=== PATIENT | male | born 1965 | race Caucasian/White ===

== ENCOUNTER 2017-03-14 14:36 | Inpatient (IN) | payer MEDICAID ==
--- NOTE | 2017-03-14 15:09 | ED Physician Chart ---
ED Chief Complaint/HPI - Patient Information Date Seen:: 03/14/17 Time Seen:: 15:04 Chief Complaint:: SOB and cough for 2 days History of Present Illness:: 51 yo male had runny nose and nasal congestion for 5 days before he developed SOB and cough productive of purulent sputum for 2 days. His SOB was worsened by exertion. He denied fever or chills. The patient had smoked cigarettes for 30 years, one pack daily. Allergies:: Allergies Allergy/AdvReac Type Severity Reaction Status Date / Time No Known Allergies Allergy Verified 03/14/17 15:01 Vitals:: Vital Signs - 8 hr 03/14/17 15:01 Temp 97.0 F HR 64 RR 22 BP 143/74 O2 Sat % 96 ED Review of Systems - Review of Systems General/Constitutional: No fever, No chills Skin: No bruising Head: No headache Eyes: No pain ENT: No earache Neck: No neck pain Cardio Vascular: No chest pain Pulmonary: SOB GI: No nausea, No vomiting Musculoskeletal: No bone or joint pain Psychiatric: No prior psych history Neurological: No focal symptoms ED Past Medical History - Past Medical History Past Medical History: HTN Social History: Smoker, No Alcohol, No Drug Use Surgical History: other (lumar surgery) Family Medical History - Family Member Mother History Unknown: Yes ED Physical Exam - Physical Examination General/Constitutional: Awake Head: Atraumatic Eyes: PERRL Skin: No ecchymosis ENMT: Nasal exam nl Neck: No nuchal rigidity Other Respiratory comments:: Diffuse wheezing bilateral lungs Cardio Vascular: RRR, No murmur, gallop, rubs, NL S1 S2 GI: No tenderness/rebounding/guarding Extremities: normal strength in all extremities Neuro/Psych: No focal deficits ED Labs/Radiology/EKG Results - Radiology Results Results: CXR: no consolidation ED Assessment - Assessment General Assessment: Bronchitis Hypoxemia Assessment/Comments:: CBC, CMP, ABG CXR DuoNeb Solu-medrol Azithromycin ED Septic Shock - . Is Septic Shock (SBP<90, OR Lactate>4 mmol\L) present?: No - <6hrs of presentation: Vital Signs: Vital Signs - 8 hr 03/14/17 15:01 Temp 97.0 F HR 64 RR 22 BP 143/74 O2 Sat % 96 ED Reassessment (Disposition) - Reassessment Reassessment Condition:: Improved - Patient Disposition Discharge/Transfer:: Acute Care w/in this hosp Admitting Medical Physician:: Reji Padgett ED Discharge Plan - Patient Disposition Admit/Discharge/Transfer: Acute Care w/in this hosp Condition at Disposition: Stable
[2017-03-14] MEDS ORDERED: Albuterol/Ipratropium Neb 3 ML AERS HHN ONE ×3 (15:17→15:43)
[2017-03-14 15:54] LABS: ALLEN TEST PASS; pH 7.41 (7.35-7.45)
[2017-03-14 16:15] LABS: ALB/GLOB RATIO 1.5 (1.0-1.8); ALBUMIN 3.9 gm/dL (4.2-5.5); ALKALINE PHOSPHATASE 83 U/L (34-104); ANION GAP 9.6 (7.0-16.0); BILIRUBIN,TOTAL 0.3 mg/dL (0.3-1.0); BUN - UREA NITROGEN 13 mg/dL (7-25); CALCIUM SERUM 8.9 mg/dL (8.6-10.3); CARBON DIOXIDE 27.4 mEq/L (21.0-31.0); CHLORIDE 106 mEq/L (98-107); CREATININE - SERUM 0.7 mg/dL (0.7-1.3); GFR AFRICAN-AMERICAN > 60.0 ml/min (>90); GFR NON AFRICAN-AMERICAN > 60.0 ml/min; GLUCOSE 175 mg/dL (70-105); SGOT 48 U/L (13-39); SGPT/ALT 100 U/L (7-52); SODIUM SERUM 139 mEq/L (136-145); TOTAL PROTEIN,SERUM 6.5 gm/dL (6.0-8.3)
[2017-03-14 17:45] LABS: HEMOGLOBIN 16.3 gm/dL (12-16); RED BLOOD COUNT 5.82 Mil/cmm (4.30-5.70); WHITE BLOOD COUNT 10.5 Th/cmm (4.8-10.8)
[2017-03-14 17:46] LABS: % BASOPHILS 0.6 % (0.0-2.0); % EOSINOPHILS 0.3 % (0.0-5.0); % LYMPHOCYTES 13.6 % (20.0-50.0); % NEUTROPHILS 78.5 % (40.0-80.0); HEMATOCRIT 49.3 % (41.0-60); MEAN CELL VOLUME 84.6 fl (80-99); MEAN CORPUSCULAR HEMOGLOBIN 27.9 pg (26.0-30.0); PLATELET COUNT 319 Th/cmm (150-400)
[2017-03-14 17:47] LABS: BASOPHILE ABSOLUTE 0.1 Th/cumm (0-0.2); LYMPHOCYTE ABSOLUTE 1.4 Th/cmm (1.5-3.0); MONOCYTE ABSOLUTE 0.7 Th/cmm (0.3-1.0); NEUTROPHILE ABSOLUTE 8.3 Th/cmm (1.8-8.0)
[2017-03-14] MEDS ORDERED: Azithromycin 500 MG in Sodium Chloride 0.9% 250 ML IV ONE (17:51)
[2017-03-14 18:15] LABS: ALLEN TEST YES; pH 7.44 (7.35-7.45)
[2017-03-14] MEDS: Azithromycin 500 MG in Sodium Chloride 0.9% 250 ML IV SCH (21:45)
[2017-03-14] MEDS: Albuterol/Ipratropium Neb 3 ML AERS HHN SCH (22:38)
[2017-03-14 22:45] VITALS: BP 158/54
[2017-03-14] MEDS ORDERED: Influenza Vaccine 0.5 mL Syr IM ONE (23:10)
[2017-03-15] MEDS: Albuterol/Ipratropium Neb 3 ML AERS HHN SCH ×5 (02:43→19:25)
[2017-03-15 06:28] LABS: ALB/GLOB RATIO 1.4 (1.0-1.8); ALBUMIN 3.9 gm/dL (4.2-5.5); ALKALINE PHOSPHATASE 84 U/L (34-104); ANION GAP 11.2 (7.0-16.0); BILIRUBIN,TOTAL 0.3 mg/dL (0.3-1.0); BUN - UREA NITROGEN 14 mg/dL (7-25); CALCIUM SERUM 9.4 mg/dL (8.6-10.3); CARBON DIOXIDE 28.9 mEq/L (21.0-31.0); CHLORIDE 103 mEq/L (98-107); CREATININE - SERUM 0.7 mg/dL (0.7-1.3); GFR AFRICAN-AMERICAN > 60.0 ml/min (>90); GFR NON AFRICAN-AMERICAN > 60.0 ml/min; GLUCOSE 222 mg/dL (70-105); POTASSIUM SERUM 4.1 mEq/L (3.5-5.1); SGOT 36 U/L (13-39); SGPT/ALT 97 U/L (7-52); SODIUM SERUM 139 mEq/L (136-145); TOTAL PROTEIN,SERUM 6.6 gm/dL (6.0-8.3)
[2017-03-15 06:38] LABS: HEMOGLOBIN 16.5 gm/dL (12-16); LYMPHOCYTE ABSOLUTE 0.5 Th/cmm (1.5-3.0); MEAN CELL VOLUME 84.9 fl (80-99); MEAN CORPUSCULAR HEMOGLOBIN 28.1 pg (26.0-30.0); MEAN CORPUSCULAR HGB CONC 33.1 pg (28.0-36.0); MEAN PLATELET VOLUME 8.7 fl; MONOCYTE ABSOLUTE 4.5 Th/cmm (0.3-1.0); NEUTROPHILE ABSOLUTE 7.7 Th/cmm (1.8-8.0); PLATELET COUNT 343 Th/cmm (150-400); RED BLOOD COUNT 5.89 Mil/cmm (4.30-5.70); RED CELL DISTRIBUTION WIDTH 12.8 % (11.5-20.0)
[2017-03-15 07:31] LABS: WHITE BLOOD COUNT 13.7 Th/cmm (4.8-10.8)
--- NOTE | 2017-03-15 07:44 | Diagnostic Imaging Report ---
CHEST X-RAY: AP view INDICATION: Wheezing COMPARISON: None FINDINGS: Chronic interstitial lung changes are seen with left basal density. Cardiomegaly is noted with tortuous aorta. Degenerative changes of spine are noted. IMPRESSION: Left basal density. A small left effusion with atelectasis versus infiltrate of the left base cannot be excluded. Recommend dedicated follow-up PA and lateral chest x-rays Cardiomegaly and tortuous aorta.
--- NOTE | 2017-03-15 07:52 | Diagnostic Imaging Report ---
CHEST X-RAY: AP view INDICATION: Congestion COMPARISON: Chest x-ray 03/14/2017 at 17:58 FINDINGS: A small left effusion is noted. Atelectasis versus Infiltrate of the left lung base cannot be excluded. Mild cardiomegaly is noted. There may be a mild degree of congestion. IMPRESSION: Probable mild degree of pulmonary vascular congestion. A small left effusion is also noted. Atelectasis versus faint infiltrate of the left base cannot be excluded. Mild cardiomegaly.
--- NOTE | 2017-03-15 07:53 | Diagnostic Imaging Report ---
CHEST X-RAY: Single lateral view INDICATION: Effusion Comparison: Chest x-ray earlier the same day at 1728 FINDINGS: Single lateral view demonstrates no gross effusion. No focal consolidation identified. Heart size normal. IMPRESSION: No obvious effusion identified.
[2017-03-15 08:09] LABS: BAND NEUTROPHILE 4 % (0-10); LYMPHOCYTE 10 % (20-50); MONOCYTE 1 % (2-10); NEUTROPHILS 85 % (40-80); TOTAL CELLS COUNTED 100
--- NOTE | 2017-03-15 08:29 | History and Physical ---
History of Present Illness - HPI Chief Complaint: SOB and cough for 2 days HPI: 51 y/o male who presents to [facility] ER for 2 day history of SOB and cough for the past 2-3 days, along with nasal congestion and coughing up purulent sputum. Patient has a previous history of smoking 30 years x 1 pack/ day. While in the ER patient underwent initial labwork which revealed. WBC10.5 H/H 16.3/49.3 plat 319 Na 139 K 4.0 Bun/Cr 13/0.7 glu 175 AST 48 ALT 100 CXR - Patient subsequently admitted for further evaluation and treatment. Vital Signs: Last Vital Signs Temp 98.7 F 03/15/17 04:00 Pulse 78 03/15/17 06:54 Resp 14 03/15/17 06:54 BP 156/78 03/15/17 04:00 Pulse Ox 95 03/15/17 06:54 Past Medical History Cardiovascular: Report: HTN Pulmonary: Report: No Pertinent Hx CLIENT SERVICE MANAGER: Report: No Pertinent Hx GI: Report: No Pertinent Hx Psych: Report: No Pertinent Hx Musculoskeletal: Report: No Pertinent Hx Rheumatologic: Report: No pertinent Hx Infectious Disease: Report: No Pertinent Hx Renal/: Report: No Pertinent Hx Endocrine: Report: No Pertinent Hx Dermatology: Report: No Pertinent Hx - Past Surgical History Past Surgical History: No pertinent Hx Family Medical History - Family Member Mother History Unknown: Yes Social History Smoke: 1 pack per day (x 30 years) Alcohol: None Drugs: None Lives: With Family - Medications Home Medications: Home Medication Medication Instructions Recorded Type Atenolol 50 mg PO DAILY 03/14/17 History - Allergies Allergies/Adverse Reactions: Allergies Allergy/AdvReac Type Severity Reaction Status Date / Time No Known Allergies Allergy Verified 03/14/17 15:01 Review of Systems - Review of Systems Constitutional: Report: Weakness Eyes: Report: No Significant ENT: Report: No Significant Respiratory: Report: Cough, Sputum Cardiovascular: Report: No Significant Gastrointestinal: Report: No Significant Genitourinary: Report: No Significant Musculoskeletal: Report: No Significant Skin: Report: No Significant Neurological: Report: No Significant Physical Exam - Physical Exam HEENT: Report: Ears Nose Throat within normal limits, Pharnyx within normal limits Neck: Report: Within normal limits. Denies: Thyromegaly Cardiovascular Systems: Report: +s1/s2 noted, Regular, Rate and Rhythm Respiratory: Report: Wheezing Abdomen: Report: Non-tender to palpation, Guarding Back: Report: Inspection of back is within normal limits. Neuro/Psych: Report: Mood affect is within normal limits, A+Ox3, CN II-XII intact - Lab Results All Lab Results last 24 hours: Laboratory Results - last 24 hr 03/15/17 03/15/17 05:53 05:53 WBC 13.7 H D RBC 5.89 H Hgb 16.5 Hct 50.0 MCV 84.9 MCH 28.1 MCHC Differential 33.1 RDW 12.8 Plt Count 343 MPV 8.7 Band Neutrophils % 4 Neutrophils (Manual) 85 H Lymphocytes 10 L Monocytes 1 L Sodium 139 Potassium 4.1 Chloride 103 Carbon Dioxide 28.9 Anion Gap 11.2 BUN 14 Creatinine 0.7 Est GFR ( Amer) > 60.0 Est GFR (Non-Af Amer) > 60.0 BUN/Creatinine Ratio 20.0 Glucose 222 H Calcium 9.4 Total Bilirubin 0.3 AST 36 ALT 97 H Alkaline Phosphatase 84 Total Protein 6.6 Albumin 3.9 L Globulin 2.7 Albumin/Globulin Ratio 1.4 - Assessment Assessment: Current Active Problems Problem Status Onset DYSPNEA WITH COUGH/CONGESTION Acute SOB Acute Bronchitis Smoker HTN Mild cardiomegaly elevated BS - Plan Plan: Pulmonary consults -Dr.D Boucher CBC,CMP,BNP,Lipid profile, TSH,A1c accucheck Ac HS low dose sliding scale repeat chest xray solumedrol IV antibiotics Alb HHN
[2017-03-15] MEDS ORDERED: Pneumococcal Vaccine 0.5 mL Vial IM ONE (09:00)
[2017-03-15] MEDS: methylPREDNISolone SS 40 mg Vial IVP SCH ×2 (10:33→23:10)
[2017-03-15] MEDS: INSULIN ASPART SLIDING SCALE 100 UNITS/ML UNIT SUBQ SCH ×3 (12:33→23:00)
[2017-03-15] MEDS ORDERED: Probiotic Screen MC PRN (16:21)
[2017-03-15 20:53] LABS: A1C % 7.3 % (4.0-6.0)
[2017-03-15] MEDS: Azithromycin 500 MG in Sodium Chloride 0.9% 250 ML IV SCH (23:09)
--- NOTE | 2017-03-16 01:42 | Progress Notes ---
DATE: 03/15/2017 REASON FOR CONSULTATION: Shortness of breath. CONSULT NOTE: This is a 51-year-old gentleman who has been working locally, but lives in [facility], presented with increase of nasal congestion, coughing, sputum with questionable chills. Subsequently, the patient did not feel good. He decided to come check in a local Emergency Room where he came in here. SYMPTOMS: The patient has some slight sputum, some wheezing. No chest pain, no swelling of the legs. No PND, no orthopnea. Denies of any other medical issue of recent past, was told that he has sleep apnea syndrome. He did not get a chance to get it done and also has a history of hypertension for which he takes atenolol. PAST MEDICAL HISTORY: Morbid obesity, suspect obstructive sleep apnea syndrome, possibly metabolic disorder. Smoking history more than [id number] smoker. ALLERGIES: None that he can tell me. SOCIAL HISTORY: Currently works locally in a construction area. ALLERGIC HISTORY: Nil. FAMILY HISTORY: Noncontributory. PHYSICAL EXAMINATION: GENERAL: This is a heavy set, middle-aged looking gentleman; awake, alert, and oriented, not in acute distress. VITAL SIGNS: The patient's temperature is 98.3, blood pressure 150/90, respirations 18, and temperature is 98.2 on no oxygen. HEENT: Examination of the head is essentially unremarkable. Pupils appear to be equal and reacting to light. Conjunctivae show slightly pallor. Oral cavity shows small oropharyngeal opening. NECK: No nodes in the neck could be palpated. CHEST: Shows diminished air entry with occasional rhonchi. HEART: Regular. ABDOMEN: Protuberant, soft, and nontender. EXTREMITIES: No peripheral edema. LABORATORY DATA: The patient's initial white count is 10,000. Repeat on this morning is 13,000, hemoglobin is 16.5, lymphocyte predominant on lower side. The patient's ABG, pO2 this morning on room air is 52 with pCO2 of 45 and electrolytes are okay with sugar of 222, and albumin is 3.9. DIAGNOSTIC DATA: Chest x-ray shows hyperinflated lung, poor quality. ASSESSMENT: 1. The patient has acute asthmatic bronchitis. 2. Chronic obstructive pulmonary disease, probably causative factor is viral. 3. Suspect obstructive sleep apnea syndrome. 4. Morbid obesity with hypertension, diabetes mellitus, obesity, and obesity hypoventilation syndrome. PLANS AND SUGGESTIONS: We will continue current antibiotic inhalation treatment. We will add steroid to breathing treatment and watch the hemoglobin A1c and repeat blood gasses, chest x-ray and also checked out for influenza A and B antigen and see how it is and go from there. If he remains stable, he can be discharged to be followed up as an outpatient and go from there. JOB# [id number]
--- NOTE | 2017-03-16 03:33 | Consultation ---
DATE OF CONSULTATION: 03/15/[address] Reji Padgett. HISTORY AND PHYSICAL: This is a 51-year-old obese male patient, who is a nonsmoker, has been complaining of shortness of breath, cough with expectoration of green sputum, low-grade fever and the patient is admitted. No history of PND or orthopnea. PAST MEDICAL HISTORY: COPD, nicotine dependence, hypertension, and obesity. FAMILY HISTORY: Unremarkable. SOCIAL HISTORY: The patient smokes a pack a day. No history of alcohol abuse. ALLERGIES: None. PHYSICAL EXAMINATION: VITAL SIGNS: Blood pressure 150/80, pulse 70, respirations 20. HEAD: Normocephalic. No lumps or bumps. EYES: Pupils are equal, reactive to light. Fundi show AV nicking, sclerae white, conjunctivae pink. NECK: Carotid 2+. Normal upstroke. JVD flat. Thyroid not palpable. Lymph nodes not palpable. CHEST: Shows increased AP diameter. No kyphosis, scoliosis. LUNGS: Bilateral wheezing, rhonchi, prolonged expiration. HEART: PMI fifth intercostal space with lateral to midclavicular line. S1, S2. No S3, S4. Soft systolic murmur. ABDOMEN: Soft. Liver and spleen not palpable. No organomegaly. Bowel sounds active. NEUROLOGIC: Unremarkable. EXTREMITIES: Peripheral pulses 2+. No pedal edema. CLINICAL IMPRESSION: Acute exacerbation of chronic obstructive pulmonary disease, asthmatic bronchitis, obesity, hypertension and nicotine dependence, and diabetes mellitus type 2. PLAN: The patient to continue present care, monitor the patient, and get echocardiogram for left ventricular function. JOB# [id number]
[2017-03-16 05:35] LABS: EOSINOPHILE ABSOLUTE 0.8 Th/cmm (0.1-0.4); HEMATOCRIT 51.9 % (41.0-60); HEMOGLOBIN 16.9 gm/dL (12-16); LYMPHOCYTE ABSOLUTE 0.8 Th/cmm (1.5-3.0); MEAN CELL VOLUME 85.1 fl (80-99); MEAN CORPUSCULAR HEMOGLOBIN 27.7 pg (26.0-30.0); MEAN CORPUSCULAR HGB CONC 32.5 pg (28.0-36.0); MEAN PLATELET VOLUME 8.4 fl; MONOCYTE ABSOLUTE 4.9 Th/cmm (0.3-1.0); PLATELET COUNT 360 Th/cmm (150-400)
[2017-03-16 06:01] LABS: WHITE BLOOD COUNT 17.5 Th/cmm (4.8-10.8)
[2017-03-16 06:04] LABS: ALB/GLOB RATIO 1.4 (1.0-1.8); ALBUMIN 3.9 gm/dL (4.2-5.5); ALKALINE PHOSPHATASE 80 U/L (34-104); ANION GAP 9.6 (7.0-16.0); BILIRUBIN,TOTAL 0.3 mg/dL (0.3-1.0); BUN - UREA NITROGEN 16 mg/dL (7-25); CALCIUM SERUM 9.3 mg/dL (8.6-10.3); CARBON DIOXIDE 29.8 mEq/L (21.0-31.0); CHLORIDE 103 mEq/L (98-107); CREATININE - SERUM 0.6 mg/dL (0.7-1.3); GFR AFRICAN-AMERICAN > 60.0 ml/min (>90); GFR NON AFRICAN-AMERICAN > 60.0 ml/min; GLUCOSE 189 mg/dL (70-105); MAGNESIUM 2.1 mg/dL (1.9-2.7); POTASSIUM SERUM 4.4 mEq/L (3.5-5.1); SGOT 31 U/L (13-39); SGPT/ALT 108 U/L (7-52); SODIUM SERUM 138 mEq/L (136-145); TOTAL PROTEIN,SERUM 6.7 gm/dL (6.0-8.3)
[2017-03-16 06:26] LABS: NEUTROPHILS 83 % (40-80); TOTAL CELLS COUNTED 100
[2017-03-16 06:27] LABS: BAND NEUTROPHILE 2 % (0-10); LYMPHOCYTE 11 % (20-50); MONOCYTE 4 % (2-10)
[2017-03-16] MEDS: INSULIN ASPART SLIDING SCALE 100 UNITS/ML UNIT SUBQ SCH ×4 (07:00→22:40)
--- NOTE | 2017-03-16 08:26 | General Progress Note ---
Subjective - Review of Systems Service Date: 03/16/17 Subjective: Awake,Alert,afebrile. BP elevated this AM. Glucose slightly elevated WBC's elevated. Objective - Results Result Diagrams: 03/16/17 05:20 03/16/17 05:20 Recent Labs: Laboratory Last Values WBC 17.5 Th/cmm (4.8-10.8) H D 03/16/17 05:20 RBC 6.10 Mil/cmm (4.30-5.70) H 03/16/17 05:20 Hgb 16.9 gm/dL (12-16) 03/16/17 05:20 Hct 51.9 % (41.0-60) 03/16/17 05:20 MCV 85.1 fl (80-99) 03/16/17 05:20 MCH 27.7 pg (26.0-30.0) 03/16/17 05:20 MCHC Differential 32.5 pg (28.0-36.0) 03/16/17 05:20 RDW 13.0 % (11.5-20.0) 03/16/17 05:20 Plt Count 360 Th/cmm (150-400) 03/16/17 05:20 MPV 8.4 fl 03/16/17 05:20 Neutrophils % 78.5 % (40.0-80.0) 03/14/17 15:30 Band Neutrophils % 2 % (0-10) 03/16/17 05:20 Lymphocytes % 13.6 % (20.0-50.0) L 03/14/17 15:30 Monocytes % 7.0 % (2.0-10.0) 03/14/17 15:30 Eosinophils % 0.3 % (0.0-5.0) 03/14/17 15:30 Basophils % 0.6 % (0.0-2.0) 03/14/17 15:30 Neutrophils (Manual) 83 % (40-80) H 03/16/17 05:20 Lymphocytes 11 % (20-50) L 03/16/17 05:20 Monocytes 4 % (2-10) 03/16/17 05:20 D-Dimer < 100 ng/mL (100-400) L 03/14/17 15:30 Specimen Source Arterial 03/14/17 17:47 Sample Site Right Radial 03/14/17 17:47 pH 7.44 (7.35-7.45) 03/14/17 17:47 pCO2 45.0 mmHg (35.0-45.0) 03/14/17 17:47 pO2 52.0 mmHg (80.0-100.0) L 03/14/17 17:47 HCO3 29.1 mEq/L (20.0-26.0) H 03/14/17 17:47 Base Excess 5.6 mEq/L (-3.0-3.0) H 03/14/17 17:47 O2 Saturation 88.0 % (92.0-100.0) L 03/14/17 17:47 Jon Test YES 03/14/17 17:47 Vent Rate NA 03/14/17 17:47 Inspired O2 21 03/14/17 17:47 Tidal Volume NA 03/14/17 17:47 PEEP NA 03/14/17 17:47 Pressure (ins/psv/peep) NA 03/14/17 17:47 Critical Value SH 03/14/17 17:47 Sodium 138 mEq/L (136-145) 03/16/17 05:20 Potassium 4.4 mEq/L (3.5-5.1) 03/16/17 05:20 Chloride 103 mEq/L (98-107) 03/16/17 05:20 Carbon Dioxide 29.8 mEq/L (21.0-31.0) 03/16/17 05:20 Anion Gap 9.6 (7.0-16.0) 03/16/17 05:20 BUN 16 mg/dL (7-25) 03/16/17 05:20 Creatinine 0.6 mg/dL (0.7-1.3) L 03/16/17 05:20 Est GFR ( Amer) > 60.0 ml/min (>90) 03/16/17 05:20 Est GFR (Non-Af Amer) > 60.0 ml/min 03/16/17 05:20 BUN/Creatinine Ratio 26.7 03/16/17 05:20 Glucose 189 mg/dL (70-105) H 03/16/17 05:20 POC Glucose 156 MG/DL (70 - 105) H 03/16/17 06:39 Hemoglobin A1c % 7.3 % (4.0-6.0) H 03/14/17 15:30 Calcium 9.3 mg/dL (8.6-10.3) 03/16/17 05:20 Magnesium 2.1 mg/dL (1.9-2.7) 03/16/17 05:20 Total Bilirubin 0.3 mg/dL (0.3-1.0) 03/16/17 05:20 AST 31 U/L (13-39) 03/16/17 05:20 ALT 108 U/L (7-52) H 03/16/17 05:20 Alkaline Phosphatase 80 U/L (34-104) 03/16/17 05:20 Troponin I 0.01 ng/mL (0.01-0.05) 03/14/17 15:30 B-Natriuretic Peptide 72.2 pg/mL (5.0-100.0) 03/15/17 08:01 Total Protein 6.7 gm/dL (6.0-8.3) 03/16/17 05:20 Albumin 3.9 gm/dL (4.2-5.5) L 03/16/17 05:20 Globulin 2.8 gm/dL 03/16/17 05:20 Albumin/Globulin Ratio 1.4 (1.0-1.8) 03/16/17 05:20 TSH 0.96 uIU/ml (0.34-5.60) 03/16/17 05:20 - Physical Exam Vitals and I&O: Vital Signs Temp 98.2 F 03/16/17 00:00 Pulse 58 03/16/17 00:00 Resp 19 03/16/17 00:00 BP 171/88 03/16/17 00:00 Pulse Ox 97 03/16/17 00:00 Intake & Output 03/15/17 03/16/17 03/16/17 18:59 06:59 18:59 Weight (lbs) 137.438 kg Other: # Voids 5 # Bowel Movements 0 Active Medications: Current Medications Albuterol/Ipratropium (Duoneb Neb) 3 ml HHN [id number] [place] Stop: 05/15/17 06:59 Atenolol (Tenormin) 50 mg PO DAILY [place] Stop: 05/14/17 08:59 Last Admin: 03/15/17 10:34 Dose: 50 mg Budesonide (Pulmicort) 0.5 mg HHN BIDRT [facility] Stop: 05/15/17 06:59 Azithromycin 500 mg/ Sodium (Chloride) 250 mls @ 250 mls/hr IV Q24HR [facility] Stop: 05/13/17 21:14 Last Admin: 03/15/17 23:09 Dose: 250 mls/hr Ceftriaxone Sodium 1 gm/ (Dextrose) 50 mls @ 100 mls/hr IV Q24H [facility] Stop: 05/13/17 21:14 Last Admin: 03/15/17 23:10 Dose: 100 mls/hr Insulin Aspart (Novolog Insulin Sliding Scale) 0 units SUBQ ACHS [place] PRN Reason: Protocol Stop: 05/14/17 11:29 Last Admin: 03/15/17 23:00 Dose: Not Given Methylprednisolone Sodium Succinate (Solu-Medrol) 40 mg IVP Q12HR [facility] Stop: 05/15/17 08:59 Miscellaneous (Probiotic Screen) 1 ea [facility] PRN PRN PRN Reason: PROTOCOL Stop: 05/14/17 16:20 General: Alert, Oriented x3 HEENT: Atraumatic Neck: Supple Cardiovascular: Regular rate, Normal S1, Normal S2 Lungs: Other (decreased breath sounds) Abdomen: Bowel sounds, Soft Extremities: no Clubbing, no Cyanosis, no Edema Neurological: Normal gait, Normal speech Assessment/Plan - Problem List Patient Problems: All Active Problems DYSPNEA WITH COUGH/CONGESTION (Acute) - Assessment Assessment: Current Active Problems Problem Status Onset DYSPNEA WITH COUGH/CONGESTION Acute SOB Acute Bronchitis .. continue IV solumedrol and IV antibiotic therapy. Will check Chest xray tomorrow AM Smoker HTN elevated ... will add Clonidine 0.1mg q8 PRN SBP above 150 Mild cardiomegaly ... cardiology consult. elevated BS ... will start Metformin 500mg once daily. accuchecks, low dose sliding scale. decrease solumedrol 40mg IV q12 leukocytosis ... will repeat CBC tomorrow AM - Plan Plan: Pulmonary consults -Dr.D Boucher CBC,CMP,BNP,Lipid profile, TSH,A1c accucheck Ac HS low dose sliding scale repeat chest xray solumedrol IV antibiotics Alb HHN
[2017-03-16 10:05] LABS: ALLEN TEST POSITIVE; pH 7.43 (7.35-7.45)
[2017-03-16] MEDS: methylPREDNISolone SS 40 mg Vial IVP SCH ×2 (10:19→22:40)
[2017-03-16] MEDS: Albuterol/Ipratropium Neb 3 ML AERS HHN SCH ×4 (10:39→18:54)
[2017-03-16] MEDS: Budesonide 0.5 Mg/2 mL Ud HHN SCH ×2 (10:39→19:07)
--- NOTE | 2017-03-16 11:21 | Diagnostic Imaging Report ---
Chest x-ray (2 views) HISTORY: Shortness of breath Compared with a prior exam of March 15, 2017, the heart is enlarged. No focal pulmonary processes. No hilar or mediastinal abnormalities. IMPRESSION: 1. No acute focal pulmonary processes 2. Cardiomegaly
[2017-03-16 14:17] LABS: HEP A AB IGM Negative (Negative); HEP B CORE IGM Negative (Negative); HEP B SURFACE AG QL Negative (Negative); HEP C ANTIBODY 0.1 s/co ratio (0.0-0.9)
--- NOTE | 2017-03-16 14:23 | Cardiology ---
03/15/[address] Reji Padgett. M-MODE ECHOCARDIOGRAM: Mitral valve, anterior leaflet of mitral valve shows normal excursion, EF velocity. Posterior leaflet of the mitral valve shows normal excursion. Left ventricular posterior wall shows increased thickness, normal excursion. Interventricular septum shows increased thickness, normal excursion, hypertrophy of the left ventricle, ejection fraction 55%. Left atrium normal. Aortic root shows normal dimension, normal excursion of aortic leaflets. CONCLUSION: Hypertrophy of the left ventricle, ejection fraction 55%. 2D ECHO: Long axis view showed normal-sized left ventricle with hypertrophy of the left ventricle. Left atrium normal. Aortic root shows normal dimension, normal excursion of aortic leaflets. Short axis view of mitral valve normal. Short axis view of aortic valve normal. Apical four-chamber view showed normal-sized left ventricle with hypertrophy of the left ventricle. Left atrium normal, right ventricular cavity and right atrium normal. No pericardial effusion. CONCLUSION: Hypertrophy of the left ventricle, ejection fraction 55%. Doppler study shows mild aortic regurgitation and mild tricuspid regurgitation. JOB# [id number]
[2017-03-16] MEDS: Azithromycin 500 MG in Sodium Chloride 0.9% 250 ML IV SCH (22:40)
--- NOTE | 2017-03-17 03:28 | Progress Notes ---
DATE: 03/16/2017 PROBLEM LIST: 1. Acute respiratory failure, improving. 2. Chronic obstructive pulmonary disease. 3. Severe obstructive sleep apnea syndrome. 4. Possibly diabetes mellitus. CONSULT NOTE: This patient is feeling okay. He wants to go home. No coughing, no wheezing, no much shortness of breath. PHYSICAL EXAMINATION: VITAL SIGNS: Temperature is 97.5, blood pressure is 165/85 and the patient's saturation is 98% on room air. NECK: Throat is not visualized. CHEST: Shows diminished air entry without much of adventitious breath sounds. HEART: Regular. ABDOMEN: Soft, nontender. LABORATORY DATA: The patient's white count is 17,000, hemoglobin 16.9, pO2 is 56, saturation 90% on room air and electrolytes are okay and sugars are border high and TSH is 0.98. Hemoglobin A1c is pending. ASSESSMENT: The patient clinically appears to be doing much better, improving though hypoxemic. PLANS AND SUGGESTIONS: We will go ahead and ambulate the patient. Recheck the blood gases. If he is stable, can be discharged tomorrow with inhaled bronchodilator, tapering dose of steroid and empirical antibiotic and go from there. JOB# [id number]
[2017-03-17 06:38] LABS: % BASOPHILS 1.6 % (0.0-2.0); % EOSINOPHILS 0.1 % (0.0-5.0); % LYMPHOCYTES 8.2 % (20.0-50.0); % NEUTROPHILS 87.1 % (40.0-80.0); BASOPHILE ABSOLUTE 0.3 Th/cumm (0-0.2); HEMATOCRIT 53.1 % (41.0-60); HEMOGLOBIN 17.3 gm/dL (12-16); LYMPHOCYTE ABSOLUTE 1.4 Th/cmm (1.5-3.0); MEAN CELL VOLUME 84.1 fl (80-99); MEAN CORPUSCULAR HEMOGLOBIN 27.5 pg (26.0-30.0); MEAN CORPUSCULAR HGB CONC 32.7 pg (28.0-36.0); MEAN PLATELET VOLUME 8.5 fl; MONOCYTE ABSOLUTE 0.5 Th/cmm (0.3-1.0); NEUTROPHILE ABSOLUTE 14.4 Th/cmm (1.8-8.0); PLATELET COUNT 368 Th/cmm (150-400); RED BLOOD COUNT 6.31 Mil/cmm (4.30-5.70)
[2017-03-17 06:58] LABS: ALB/GLOB RATIO 1.4 (1.0-1.8); ALKALINE PHOSPHATASE 83 U/L (34-104); ANION GAP 11.2 (7.0-16.0); BILIRUBIN,TOTAL 0.5 mg/dL (0.3-1.0); BUN - UREA NITROGEN 19 mg/dL (7-25); CALCIUM SERUM 9.3 mg/dL (8.6-10.3); CHLORIDE 101 mEq/L (98-107); CREATININE - SERUM 0.7 mg/dL (0.7-1.3); GFR AFRICAN-AMERICAN > 60.0 ml/min (>90); GFR NON AFRICAN-AMERICAN > 60.0 ml/min; GLUCOSE 154 mg/dL (70-105); POTASSIUM SERUM 4.2 mEq/L (3.5-5.1); SGOT 52 U/L (13-39); SGPT/ALT 148 U/L (7-52); SODIUM SERUM 139 mEq/L (136-145); TOTAL PROTEIN,SERUM 6.8 gm/dL (6.0-8.3)
[2017-03-17] MEDS: INSULIN ASPART SLIDING SCALE 100 UNITS/ML UNIT SUBQ SCH ×3 (06:58→17:01)
[2017-03-17 07:02] LABS: WHITE BLOOD COUNT 16.6 Th/cmm (4.8-10.8)
[2017-03-17 07:04] LABS: INF A SCREEN NEG FOR INF A; INF B SCREEN NEG FOR INF B
[2017-03-17] MEDS: Budesonide 0.5 Mg/2 mL Ud HHN SCH (07:22)
[2017-03-17] MEDS: Albuterol/Ipratropium Neb 3 ML AERS HHN SCH ×3 (07:22→15:31)
[2017-03-17] MEDS: methylPREDNISolone SS 40 mg Vial IVP SCH (08:21)
--- NOTE | 2017-03-17 08:48 | Diagnostic Imaging Report ---
Exam: Portable chest x-ray HISTORY: Chest congestion Findings: Portable examination of the chest at 0827 hours reviewed and compared to the prior study of 03/16/2017 demonstrates left basilar infiltrate and superimposed effusion. Mediastinal structures midline bony thorax intact. The right lung parenchyma is well aerated. IMPRESSION: Left basilar infiltrate superimposed effusion, follow-up examination recommended.
[2017-03-17 09:40] LABS: pH 7.46 (7.35-7.45)
[2017-03-17 09:41] LABS: ALLEN TEST PASS
--- NOTE | 2017-03-18 20:54 | Discharge Summary ---
DATE OF DISCHARGE: 03/17/2017 PRELIMINARY DIAGNOSES: 1. Shortness of breath. 2. Acute bronchitis. 3. Chronic obstructive pulmonary disease. 4. Hypertension. 5. Borderline diabetes mellitus. DISCHARGE DIAGNOSES: 1. Acute bronchitis with history of COPD. 2. Hypertension. 3. Borderline diabetes mellitus. 4. Morbid obesity. 5. Possible sleep apnea. BRIEF HISTORY OF PRESENT ILLNESS: This is a 51-year-old male who presents to [facility] ER for 2-day history of shortness of breath and cough along with nasal congestion, purulent sputum noted. The patient has a previous history of smoking for 30 years with 1 pack per day. While in the ER, the patient underwent initial lab work, which revealed a white count of 10.5, hemoglobin 16.3, hematocrit 49.3, platelets 319. Sodium was 139, potassium 4.0, BUN and creatinine is 13/0.7, glucose 175, AST 48, ALT 100. Initial chest x-ray done in the ER revealed left basilar density with possible small left pleural effusion and atelectasis noted along with cardiomegaly. The patient was subsequently admitted for further evaluation and treatment. HOSPITAL COURSE: The patient improved during his hospital stay, was treated with IV azithromycin and IV Rocephin. Given Solu-Medrol 80 mg q.12 hours. The patient was seen and evaluated by Pulmonology as well as Cardiology. Please see dictated report. During his workup, the patient was found to have borderline diabetes with hemoglobin A1c noted to be at 7.0. The patient was initially started on metformin 500 mg once daily and during his hospital stay. The patient was subsequently discharged in stable condition, was to follow up with his regular physician, was to continue with azithromycin, Z-CLAYTON as well as Medrol Dosepak. The patient given also a prescription for metformin 500 mg once daily and albuterol inhaler. JOB# [id number]
== END 2017-03-17 18:35 | disposition home or self-care (01) | DRG 140 ==
LOC: ER 14:36 → MSI 19:15
PROVIDERS: ADMIT Family Medicine; ATTEND Family Medicine
DX: J44.0 Chronic obstructive pulmonary disease with (acute) lower respiratory infection (principal); J80 Acute respiratory distress syndrome; J90 Pleural effusion, not elsewhere classified; E66.2 Morbid (severe) obesity with alveolar hypoventilation; J44.1 Chronic obstructive pulmonary disease with (acute) exacerbation; J20.9 Acute bronchitis, unspecified; I11.9 Hypertensive heart disease without heart failure; F17.210 Nicotine dependence, cigarettes, uncomplicated; J98.11 Atelectasis; Z68.41 Body mass index [BMI] 40.0-44.9, adult
CPT/HCPCS: 36415-UA; 36600-90; 71045-TC; 71046-TC; 80053-TC; 80074-90; 82803-TC; 82948-90; 83036-90; 83735-TC; 83880-TC; 84443-TC; 84484-TC; 85007-TC; 85025-TC; 85027-TC; 85379-TC; 87804-TC; 93005; 94640; 94760; 96375; J0456; J0696; J1815; J2920; J2930; Z7610